=== PATIENT | male | born 1960 | race Caucasian/White ===

== ENCOUNTER 2016-04-27 15:25 | Inpatient (IN) | payer MEDICARE, MEDICAID ==
[~2016-04-27] VITALS: Ht 172.7 cm; Wt 85.4 kg
--- NOTE | ~2016-04-27 | CON ---
PATIENT'S NAME: CONCEPCION BARRETT [facility] AGE: 56 Y [address] ROOM: [place] [address] LOCATION: GPCU ADMIT DATE: 04/27/2016 Consultation DISCHARGE DATE: FAMILY PHYSICIAN: PHYSICIAN, UNKNOWN ATTENDING PHYSICIAN: PEÑA RATLIFF DATE OF CONSULTATION: 04/28/2016 REFERRING PHYSICIAN: Peña Ratliff MD REASON FOR VISIT/CONSULTATION: Wound Care visit to evaluate and assess a groin rash. HISTORY OF PRESENT ILLNESS: This is a 56-year-old male patient who was admitted to [facility] with an acute kidney injury and a GI bleed. The patient has a history of essential hypertension, back pain, and alcohol abuse. Per previous records, patient drinks an average of 8 cans of beer with 4 to 5 shots of whiskey daily and has done so for numerous years. His significant other noticed coffee-grounds emesis on the morning of admission to the hospital. EMS was called and the patient was brought to [facility] for evaluation. Family reports the patient has been falling frequently. His last fall was about a week or so ago. Family is unsure how long he laid down or the events that transpired prior to the fall. Nursing staff reports that the patient's significant other was leaving him in incontinence briefs for several hours at a time. The patient noted to have significant skin denudement and erosion to the bilateral groin folds on admit. The patient is denying pain. He is drowsy, disoriented, and a poor historian. His right elbow is swollen. He is unsure for how long. Family reports it has been that way for months. PAST MEDICAL HISTORY: 1. Essential hypertension. 2. Left lower leg DVT. 3. Alcohol abuse. 4. Chronic lower back pain. PAST SURGICAL HISTORY: Per previous records, a steel plate in back. FAMILY HISTORY: Per previous records, his father had colon cancer. SOCIAL HISTORY: PATIENT'S NAME: CONCEPCION BARRETT [facility] AGE: 56 Y [address] ROOM: [place] [address] LOCATION: GPCU ADMIT DATE: 04/27/2016 Consultation DISCHARGE DATE: FAMILY PHYSICIAN: PHYSICIAN, UNKNOWN ATTENDING PHYSICIAN: PEÑA RATLIFF The patient lives with his significant other in [place], [place]. Family reports no tobacco use. He is an alcoholic, please see HPI above for further details. ALLERGIES: NO KNOWN MEDICATION ALLERGIES. CURRENT MEDICATIONS: Pertinent to this dictation: 1. Nystatin powder t.i.d. 2. Fluconazole IV. REVIEW OF SYSTEMS: Unable to complete due to the patient's disorientation. PHYSICAL EXAMINATION: VITAL SIGNS: Temperature 97.6, pulse 87, respirations 12, blood pressure 115/62, and pulse oximetry 97%. Height 5 feet 8 inches, and weight 75.0 kg. GENERAL: The patient is drowsy, appears disoriented, and disheveled. HEENT: Anicteric sclerae. Dry oral mucosa. Cracked lips. NG intact to left nare. NECK: Supple. CARDIOVASCULAR: Regular rate and rhythm. ABDOMEN: Soft and nontender. EXTREMITIES. +1 pedal pulses. Scant edema noted to the lower legs. Capillary refill intact. Extremities are warm to touch. Heels intact. SKIN: Significant skin denudement with erosion to bilateral groin folds and upper thighs. Area is bright red in color. Scrotum is red with no open areas. Groin folds draining a moderate amount of serous exudate. Scaling of skin to bilateral groins. No odor noted. Buttocks intact. Linear dermal ulcer to gluteal crease. Area is moist pink in color. Scant serous exudate noted. Right elbow appears to have bursitis. Area is red and edematous. Proximal to his olecranon process, he has an open area that measures 4.0 cm width x 3.5 cm length x 0.1 cm depth. Wound bed is moist pink. Small amount of serosanguineous exudate noted. Distal to his olecranon process he also has a small moist pink ulcer. Area is tender to touch. Active range of motion noted. No crepitus. Periwound intact. No odor. Ecchymosis to right knee. LABORATORY DATA AND IMAGING STUDIES: Laboratory and Diagnostics: White blood cell count 7.1, hemoglobin 10.3, hematocrit 27.7, and platelets 94,000. Sodium 129, potassium 3.6, chloride 91, bicarbonate 25, BUN 77, creatinine 1.8, glucose 97, and albumin 1.9. Lactate 2.7. Urine culture, no growth to date. Blood cultures, no growth to [facility] 56 Y [address] ROOM: [id number] [place], [place] [address] LOCATION: GPCU ADMIT DATE: 04/27/2016 Consultation DISCHARGE DATE: FAMILY PHYSICIAN: PHYSICIAN, UNKNOWN ATTENDING PHYSICIAN: PEÑA RATLIFF date. Right elbow x-ray shows mild DJD, no fracture or joint effusion. ASSESSMENT AND PLAN: Again, this is a 56-year-old male patient who was admitted to [facility] with acute kidney injury and gastrointestinal bleeding. Wound Care consult to evaluate and assess a groin rash. 1. Moisture-associated skin damage, incontinence associated dermatitis, with underlying Candidal intertrigo infection. Due to patient's history of incontinence and presentation, he appears to have incontinence associated dermatitis with an underlying fungal rash. It is helpful that he has a Lundberg catheter intact to help with moisture control. Nursing is not to apply a brief to the patient. He has nystatin powder, however, clumping is noted due to drainage. We will change nystatin to topical ointment. Nursing is to apply t.i.d. The patient is to continue on fluconazole IV. Nursing is to keep the area clean and dry. I will continue to monitor site during hospital stay. 2. Gluteal crease dermal ulcer due to moisture trapping. This area is not a pressure ulcer. Nursing will apply [place] q.i.d. to gluteal crease. It is helpful that the patient has a Lundberg catheter in place. Pressure redistribution measures such as turning patient in bed q.2 hours will be enforced. The patient is to keep heels offloaded on pillows at all times. 3. Right olecranon bursitis. X-ray is negative. Possibly related to pressure and/or trauma. Unable to get a reliable history from the patient. Nursing is to elevate the right arm at all times. The patient appears to have a superficial skin tear to the site. Nursing is to cover with Xeroform gauze, change daily and p.r.n. saturation. 4. Hypovolemic shock. The patient is on IV fluids. Hospitalist is managing. I would like to thank Dr. Ratliff for this consultation. FLAQUITA JACKSON APRN FOR MD ANNABELLE CABEZAS/moiz /[id number] d: 04/28/162016 t: 05/17/161811, CONSULTATION REPORT
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
--- NOTE | ~2016-04-27 | DS ---
PATIENT'S NAME: CONCEPCION BARRETT [facility] AGE: 56 Y [address] ROOM: [place] [address] [place] [facility] [place]: 04/27/2016 Discharge Summary DISCHARGE DATE: 05/14/2016 FAMILY PHYSICIAN: Physician, Unknown ATTENDING PHYSICIAN: Peña Goyal PRINCIPAL DIAGNOSES: 1. Shock secondary to hypovolemia. 2. Acute blood loss anemia. 3. Acute upper gastrointestinal bleed. 4. Severe deconditioning. 5. Moderate protein-calorie malnutrition. 6. Dieulafoy lesion. 7. Alcoholism. 8. Vitamin A deficiency. 9. Essential hypertension. 10. Tobacco abuse. HOSPITAL COURSE: Please reference any of the admitting data to the history and physical as dictated by Dr. Goyal. A 56-year-old male with a known history of alcohol abuse and projectile coffee- grounds emesis. He was taken to the local ER for evaluation and then further sent to [facility] for further evaluation and management. He did have a hypotension and was started on IV fluids. His blood count which was initially greater than 10 had dropped to 7.4 at admission. He was placed in the progressive care while under telemetry for close observation. He was given IV fluids for blood pressure support and given blood transfusion of 2 units of packed red blood cells. He was started on octreotide drip, placed in restraints because of encephalopathy, NG tube for suction, and kept nothing by mouth. Gastroenterology consultation was obtained. He was also placed on empiric antibiotic treatment in the setting of concern for aspiration pneumonia. He was encephalopathic and a CT scan of his head did not show any acute intracranial abnormalities. Of note, there was advanced cerebral atrophy. He was also placed on the CIWA protocol to minimize the risk of alcohol detoxification and withdrawal symptoms. The patient also had a rash in his groin, which was felt to be a fungal. Wound, Ostomy, and Continence Nursing was also consulted where the patient was given topical treatment as well as nonpharmacologic intervention. They followed him through the remainder of his stay. On 04/28, his NG tube was discontinued. He was placed on Protonix IV. He PATIENT'S NAME: CONCEPCION BARRETT [facility] AGE: 56 Y [address] ROOM: [place] [address] [place] [facility] [place]: 04/27/2016 Discharge Summary DISCHARGE DATE: 05/14/2016 FAMILY PHYSICIAN: Physician, Unknown ATTENDING PHYSICIAN: Peña Goyal then underwent an endoscopy on 04/29 that showed severe esophagitis and gastric vascular lesion, treated with epinephrine and clip. He was able to resume a liquid diet and advanced as tolerated over the next 24-hour period. Trend of his hemoglobin showed continued surprise from initial 7.4 to 10.3 after transfusion, did fall down to 8.0 before trending back upward for the remaining of his stay and was 10.0 on the day of discharge. He did not require electrolyte replacement. By May 01, the patient's antibiotics were stopped. He had no complication or concerns for infection since. The patient was initially very encephalopathic, this did improve with time. He was started on physical and occupational therapy due to his severe deconditioning. Nutrition consult was obtained. His pre-albumin was initially 9.0. He was started on a mood altering medication. He did require titration of his antihypertensive medications, but appeared to have well controlled on Norvasc and Lopressor by time of discharge. Although the patient made great improvements over the 2-week period he was here, it was felt he was still not safe enough to ambulate independently and given his poor nutritional status, it was elected that the patient be transitioned to a lower level of care. Care Management and Social Work worked with the patient and were able to obtain a TCU bed on the day of discharge, with plan to continue restorative plan and nutritional supplementation before returning to home. The patient does have a remote history of a DVT, and because in light of the acute blood loss anemia, no anticoagulation was utilized. Pneumatic compression devices and often ambulation were used to prevent DVTs. The patient does have a history of tobacco use, very significant, and in fact he was given smoking cessation education and started on nicotine patch with plans to taper accordingly. Given the patient's alcohol abuse disorder, he was given multiple options for treatment, both inpatient and outpatient as well as alcoholic anonymous and tips to stop drinking. Ultrasound of the abdomen consistent with fatty infiltration, probably from severe alcohol abuse. CONSULTING PROVIDERS: 1. Gastroenterology. 2. Wound, ostomy, and Incontinence. PROCEDURES: Endoscopy or EGD. RADIOLOGIC IMAGING: CT of the brain showed advanced cerebral atrophy greater than expected for the age, no acute intracranial abnormalities found. An abdominal ultrasound showed a sludge-filled gallbladder, without any obvious stones. There is no biliary ductal dilatation. Abnormal liver PATIENT'S NAME: CONCEPCION BARRETT [facility] AGE: 56 Y [address] ROOM: [id number] [place], [place] [address] [place]: [facility] [place]: 04/27/2016 Discharge Summary DISCHARGE DATE: 05/14/2016 FAMILY PHYSICIAN: Physician, Unknown ATTENDING PHYSICIAN: Peña Goyal texture consistent with fatty infiltration and/or fibrosis, no ascites. A right elbow, 3 view, showed mild DJD, no fracture or joint effusion. LABORATORY DATA: Initial lactate was 3.7, repeat was 2.7 24 hours later. Cardiac enzymes were negative. CBC initially showed a hemoglobin of 7.4, after transfusion was 10.3, then falling to 8.0 before trending upwards to 8.5, 8.8, 9.4, and 10.0 respectively, most recently showed a hemoglobin of 10.0 and a hematocrit of 29.7. Platelet count of 315. Chemistry panel initially showed an acute kidney injury with creatinine 2.7, this did resolve over the next 3 days. Most recent chemistry panel on 05/13 showed glucose of 189, BUN of 13, creatinine 0.7, sodium 139, potassium 3.7, chloride of 107, CO2 of 24, and calcium 8.1. Liver functions initially had a total bilirubin of 2.1 and 3.4 respectively, falling to normal at 0.6 on the day of discharge. GFR was greater than 60 on the day of discharge. INR was 1.1. Initial urinalysis showed brenda-colored urine with a turbidity of 1+, specific gravity of 1.01, pH of 5.0, leukocytes 25, nitrites negative, protein negative, glucose negative, ketones negative, urobilinogen 4, bilirubin positive. Microanalysis showed white blood cells 0-2, red blood cells 0-2, epithelial 2- 5, renal epithelial 0-2, bacteria few, mucus 2+, many amorphous materials, and 2+ hyaline and granular casts are present. A urine creatinine was 153.0, urine osmolality was 366, urine sodium was less than 5. Urinalysis drug screen was negative. Presenting alcohol level was less than 0.010. Acetaminophen and salicylate level were low. Initial procalcitonin was 5.76 and then 3.96 respectively. Vitamin A was 0.11, vitamin D 25; D2 was 17.5, D3 was 7.3, and a total was 24.8. DISCHARGE MEDICATIONS: 1. Amlodipine 10 mg p.o. every day. 2. Os-Petar plus D 500 mg p.o. twice daily with meals. 3. Celexa 20 mg p.o. every morning. 4. Folic acid 1 mg p.o. every day. 5. Lidoderm 5% patch 1 patch transdermal every morning for 12 hours and to remove for 12 hours, to be applied every day. 6. Magnesium oxide 400 mg p.o. every day. 7. Metoprolol tartrate 50 mg p.o. twice daily. 8. Multivitamin 1 tablet p.o. every day. 9. NicoDerm 21 mg transdermal every day. 10. Protonix 40 mg p.o. twice daily. 11. Florastor 250 mg p.o. twice daily. 12. Thiamine 100 mg p.o. every day. 13. Vitamin A 74455 units p.o. every day. DISCHARGE INSTRUCTIONS: The patient will be discharged and transitioned to PATIENT'S NAME: CONCEPCION BARRETT [facility] AGE: 56 Y [address] ROOM: [place] [address] [place]: [facility] [place]: 04/27/2016 Discharge Summary DISCHARGE DATE: 05/14/2016 FAMILY PHYSICIAN: , Unknown ATTENDING PHYSICIAN: Peña Goyal Transitional Care Unit here at [facility]. The hospitalist will continue to follow along during his stay. It is recommended that the patient at some point in time has an manager production's followup as an outpatient regarding his vitamin A deficiency and decreased vision in the setting of alcoholism. Code status is full code. Diet should be regular. Observation of his nutrition status and supplement accordingly is recommended. His weightbearing status is as tolerated. Fall precautions. To ambulate 3 times daily. Occupational and Physical Therapy to evaluate and treat the patient as indicated. We will continue to observe his labs. Vitamin A level is recommended within the next 30 days, prealbumin level and CBC in 1 week. His rehab potential is good. His discharge potential is good. The patient and family are well aware of his condition and his prognosis. Continued smoking and alcohol education on cessation, and Social Work did see the patient while he was in TCU with an eventual plan of return to home. He should have a repeat EGD performed in the acute setting. A Gastroenterology followup to be determined. Discharge information for TCU: On the day of discharge, the patient was seen in the acute setting. He had not eaten much during the day. He was doing exercise with physical therapy. He had complained of a headache, but no visual changes. He denied any chest pain or palpitations. He denied any shortness of breath or cough. He denied any nausea or vomiting. PHYSICAL EXAMINATION: VITAL SIGNS: He was afebrile with heart rate of 87, respiratory rate of 14, blood pressure 131/83, and oxygen saturation 98% on room air. GENERAL: Greater than his stated age, but appeared comfortable sitting in bed. He is cooperative with examination, alert and oriented. LUNGS: Clear throughout all ferrer. There was no wheeze. HEART: Regular rate and rhythm without any gallop or murmur. S1, S2 present. He did not reveal any pedal edema. ABDOMEN: Soft, nontender, and nondistended. EXTREMITIES: No clubbing or cyanosis. NEURO: He was alert and oriented x3. There were no withdrawal seizures or any symptoms associated with that. Speech was clear, and he moved all 4 extremities. His hemoglobin today was 10.00. plan will be as above, which was discussed with Dr. Duke as well as the patient and his significant other. PATIENT'S NAME: CONCEPCION BARRETT [facility] AGE: 56 Y [address] ROOM: [place] [address] [place] [facility] [place]: 04/27/2016 Discharge Summary DISCHARGE DATE: 05/14/2016 FAMILY PHYSICIAN: Physician, Unknown ATTENDING PHYSICIAN: Peña Goyal CONDITION UPON DISCHARGE: Good. Total time arranging discharge greater than 30 minutes. Thank you for allowing us to participate in the care of this patient while at [facility]. RBIE LIMA APRN, APRN FOR MD LAURA CLEMENS/moiz /[id number] d: t: 05/15/16 0251, DISCHARGE SUMMARY
[~2016-04-27 15:25] MED LIST: ALEVE PM CAPLE1 EACH PO; DRISDOL 5050000 UNIT PO; FOLIC ACID1 MG PO; MYCOSTATIN(NYST15 GM TOP; NORVASC10 MG PO; OMEGA XL PO; PRINIVIL (ZESTR20 MG PO; PROTONIX40 MG PO; THIAMINE HCL100 MG PO; TYLENOL325 MG PO; VITAMIN D1000 UNIT PO
[2016-04-27] MEDS ORDERED: ADVIL PM CAPLE1 EACH PO (16:37)
[2016-04-27 16:48] LABS: HEMATOCRIT 20.8 % (37.0-53.0); HEMOGLOBIN 7.4 g/dL (12.0-17.0); MCHC 35.6 gm/dL (32.0-36.5); MCV 92.9 fl (83.0-98.0); MPV 10.9 fl (9.4-12.4); PLATELET COUNT 128 K/uL (150-450); RBC 2.24 M/uL (4.00-6.00); RDW-CV 12.5 % (11.9-14.6); WBC 8.3 K/uL (4.0-11.0)
[2016-04-27 16:58] LABS: INR - (THERAPEUTIC) 1.1 (0.9-1.1); PROTIME 11.8 SECONDS (9.6-11.1); PTT 29 SECONDS (25-32)
[2016-04-27 17:07] LABS: ALK PHOS 81 IU/L (33-138); ALT 71 IU/L (12-78); AST 147 IU/L (10-40); CO2 27 mMol/L (22-32); CPK 152 IU/L (35-332); CREATININE 2.7 mg/dL (0.6-1.3); ESTIMATED GFR (MDRD EQUATION) 24; MAGNESIUM 1.7 mg/dL (1.3-2.6); PHOSPHORUS 2.5 mg/dL (2.5-4.9); TOTAL BILIRUBIN 2.1 mg/dL (0.0-1.5); TOTAL PROTEIN 5.6 g/dL (6.0-8.4)
[2016-04-27 17:09] LABS: BLOOD UREA NITROGEN 95 mg/dL (6-24); CALCIUM 7.2 mg/dL (8.5-10.5); CHLORIDE 77 mMol/L (96-110); SODIUM 121 mMol/L (135-145)
[2016-04-27 17:27] LABS: ABSOLUTE NEUTROPHIL CT (ANC) 6.2 K/uL (1.4-9.0); BANDED NEUTROPHIL # 1.1 K/uL (0.0-0.1); BANDED NEUTROPHILS % 13 %; LYMPHOCYTE # 1.2 K/uL (0.8-4.0); LYMPHOCYTE % 14 %; MONOCYTE # 0.8 K/uL (0.0-1.0); SEGMENTED NEUTROPHIL # 5.2 K/uL (1.4-9.0); SEGMENTED NEUTROPHIL % 62 %
[2016-04-27 18:25] LABS: BLOOD URINE 50 /UL (NEGATIVE); COLOR URINE AMBER (YELLOW); GLUCOSE URINE NEGATIVE (NEGATIVE); KETONE URINE NEGATIVE (NEGATIVE); LEUKOCYTES URINE 25 /UL (NEGATIVE); NITRITE URINE NEGATIVE (NEGATIVE); PROTEIN URINE NEGATIVE (NEGATIVE); SPEC GRAVITY URINE 1.015 (1.003-1.035); TURBIDITY URINE 1+ (CLEAR); UROBILINOGEN URINE 4 mg/dL (NORMAL)
[2016-04-27 18:43] LABS: AMORPHOUS URINE 2+ (NEGATIVE)
[2016-04-27 18:45] LABS: WBC URINE 0-2 #/HPF (NEGATIVE)
[2016-04-27 18:46] LABS: BACTERIA URINE FEW (NEGATIVE); MUCUS URINE 2+ (NEGATIVE); RBC URINE 0-2 #/HPF (NEGATIVE); RENAL EPITH URINE 0-2 #/HPF (NEGATIVE)
[2016-04-27 19:01] LABS: AMPHETAMINE NEGATIVE (NEGATIVE); BARBITURATE NEGATIVE (NEGATIVE); COCAINE NEGATIVE (NEGATIVE); OPIATES NEGATIVE (NEGATIVE)
--- NOTE | 2016-04-27 19:15 | NUR ---
1545 PT IS AADITTED TO PCU PER EMS. AT TIME OF ADMIT PT IS ALMOST UNRESPONSIVE. DOES MOAN TO STERNAL RUB, NO VERBAL. TO BED BY LIFT SHEET. PT IS VERY DIRTY AND UNKEPT.DIRED VOMIT IN ABARCA, AND EARS. EYES ARE CRUSTED SHUT. PT IS JUST VERY GRIMMY AND WHEN WASHED WITH WET RAGS, THEY COME OFF OF HIM BROWN. RT ELBOW SWOLLEN RED, LARGE OPEN SHERRING AREA THAT IS WEEPING ABOUT THE SIZE OF A SILVER DOLLAR ON RT ELBOW, LT ELBOW IS VERY SORE TO THE TOUCH. BILATERAL GROINS EXTREMILY RED, RAW AND ESCORIATED. WHEN THIS AREA WAS WASHED, HE STARTED TO BLEED FROM THE NUMEROUS SCABS AROUND THE EDGES. PENIS IS ALSO RED RAW AND HAS OPEN AREAS, SCROTOM HAS RED AREAS NOT RAW AND OPEN. PT'S GIRLFRIEND SAYS HE WOULDNY GET UP TO THE BR SO SHE PUT DIAPERS ON HIM. BACK AND BOTTOM DON'T LOOK TOO BAD, NO OPEN AREAS. LOWER LEGS VERY DRY AND DIRTY, MOTTLED WHEN HE CAME TO THE FLOOR. DAUGHTERS HERE WHEN ADMITTED BUT THEY DO NOT HAVE A RELATIONSHIP WITH HIM, SO DIDN'T STAY. GIRLFRIEND HERE, BUT DOESN'T REALLY KNOW THAT MUCH ABOUT HIM. DR RATLIFF HERE AND NUMEROUIS ORDERS RECIEVED. RIZZO PLACED CLEAR ORANGE URINE.
[2016-04-27 19:34] LABS: HEMOGLOBIN 7.5 g/dL (12.0-17.0)
--- NOTE | 2016-04-28 04:54 | NUR ---
Significant Event: Oriented to self only at beginning of night, now is only d/o to date/time, patient mumbles but much more communicative now, makes confused statements at times, SBP 100-110s, HR 80-110s, on RA, lungs clear with some crackles to bases, afebrile, denies pain or discomfort, NG to intermittent suction has had total of 140ml out since admission, black coffee ground in color, denies nausea, nystatin to groin/periarea, james had 560 output and orange in color, nicotine patch to L)shoulder, currently infusing 2nd unit of blood, Protonix & Octreotide gtts continue, fluids at 75ml/hr, IV abt continue, chest xray and R)elbow xray results pending, CT of head complete and MD called with results, wrist restraints to keep patient from pulling out NG tube, family at bedside, GI saw, abd u/s this am Follow up: continue plan of care, family wishing to discuss code status
[2016-04-28 07:57] LABS: CREATININE 1.8 mg/dL (0.6-1.3); TOTAL PROTEIN 5.4 g/dL (6.0-8.4)
[2016-04-28 08:00] LABS: ANION GAP 16.6 (10.0-19.0)
[2016-04-28 08:01] LABS: ALBUMIN 1.9 gm/dL (3.5-5.0); CALCIUM 7.1 mg/dL (8.5-10.5); MAGNESIUM 1.6 mg/dL (1.3-2.6); POTASSIUM 3.6 mMol/L (3.7-5.1); TOTAL BILIRUBIN 3.4 mg/dL (0.0-1.5)
[2016-04-28 08:18] LABS: BASOPHIL % 0.3 %; EOSINOPHIL % 0.1 %; HEMOGLOBIN 10.3 g/dL (12.0-17.0); IMMATURE GRANULOCYTE # 0.1 K/uL (0.0-0.3); IMMATURE GRANULOCYTE % 1.3 %; LYMPHOCYTE # 1.2 K/uL (0.8-4.0); LYMPHOCYTE % 16.9 %; MONOCYTE % 14.3 %; MPV 10.2 fl (9.4-12.4); NEUTROPHIL # (ANC) 4.8 K/uL (1.4-9.0); NEUTROPHIL % 67.1 %; NRBC % 1.4 /100WBC (0-0.00); WBC 7.1 K/uL (4.0-11.0)
[2016-04-28 08:39] LABS: HEMATOCRIT 27.7 % (37.0-53.0); MCH 31.6 pg (27.0-34.0); MCHC 37.2 gm/dL (32.0-36.5); RBC 3.26 M/uL (4.00-6.00)
[2016-04-28 08:40] LABS: PLATELET COUNT 94 K/uL (150-450)
--- NOTE | 2016-04-28 17:35 | NUR ---
Significant Event: WOC INTO SEE PT TODAY, ORDERS RECIEVED. GI IN TO SEE PT LATE THIS PM, EGD IN AM, NPO AFTER 4 AM FOR EGD AROUND 1100. NG OUT THIS AFTERNOON, ONLY 140 OUT SINCE ADMIT YESTERDAY. DRESSING TO RT ELBOW. OINTMENT TO GROIN, ALOE TO BOTTOM. PT MORE AWAKE LATE THIS PM, TALKING TO FAMILY AND FRIENDS. TURNING Q2. SHAVED. TRIED TO BRUSH TEETH AND PT SAYS HE HAS A BROKEN TOOTH ON THE LT CLEAR IN THE BACK. MG 2 GMS THIS AM FOR 1.6. NEW DRESSING ORDERED FOR RT ELBOW, UNABLE TO GET UNTIL FRIDAY MORNING.VSS. HGB 10.3 Follow up: ABOVE,MONITOR
--- NOTE | 2016-04-29 01:47 | NUR ---
Per shift change report, restraints have been off patient since around 1530 on 04/28/16. RN reported removing bilateral wrist restraints after NG tube was d/c'd.
[2016-04-29 04:43] LABS: BASOPHIL % 0.2 %; EOSINOPHIL % 0.9 %; HEMATOCRIT 25.6 % (37.0-53.0); IMMATURE GRANULOCYTE # 0.2 K/uL (0.0-0.3); IMMATURE GRANULOCYTE % 4.2 %; LYMPHOCYTE # 0.8 K/uL (0.8-4.0); LYMPHOCYTE % 18.1 %; MCH 31.4 pg (27.0-34.0); MCHC 35.2 gm/dL (32.0-36.5); MCV 89.2 fl (83.0-98.0); MONOCYTE # 0.6 K/uL (0.0-1.0); MONOCYTE % 13.7 %; MPV 9.6 fl (9.4-12.4); NEUTROPHIL # (ANC) 2.7 K/uL (1.4-9.0); NEUTROPHIL % 62.9 %; NRBC % 1.6 /100WBC (0-0.00); PLATELET COUNT 110 K/uL (150-450); RBC 2.87 M/uL (4.00-6.00); RDW-CV 16.1 % (11.9-14.6); WBC 4.3 K/uL (4.0-11.0)
[2016-04-29 04:55] LABS: BLOOD UREA NITROGEN 45 mg/dL (6-24); CHLORIDE 101 mMol/L (96-110); CO2 24 mMol/L (22-32); CREATININE 1.1 mg/dL (0.6-1.3); MAGNESIUM 2.2 mg/dL (1.3-2.6); POTASSIUM 3.7 mMol/L (3.7-5.1)
[2016-04-29 04:56] LABS: ALBUMIN 1.9 gm/dL (3.5-5.0); ANION GAP 14.7 (10.0-19.0); CALCIUM 7.4 mg/dL (8.5-10.5); ESTIMATED GFR (MDRD EQUATION) > 60; PHOSPHORUS 1.6 mg/dL (2.5-4.9); SODIUM 136 mMol/L (135-145)
--- NOTE | 2016-04-29 06:49 | NUR ---
Significant Event: A/O, makes confused statements at times, VSS, SBP 120-140s, RA, lungs slightly coarse throughout, james had 800 orange urine out, nystatin ointment to groin and periarea, IV fluids continue along with Octreotide gtt, NPO for EGD at 1100, repostioned Q2hr, no c/o pain, patient states he's "feeling much better this am" Follow up: continue plan of care
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
--- NOTE | 2016-04-29 20:18 | NUR ---
Significant Event: Alert and oriented. Becomes confused and says things that does not make sense. SBP 140's, 150's. HR 70's & 80's. Peripheral IV right antebubital, saline locked. Peripheral IV left antecubital. Octreotide infusing at 25 ml/hr. Antibiotics also infusing intermittent. EGD done today. Esophagitis, Esophageal fungus, and stomach ulcers. Clear liquid diet and can advance as tolerated. Pericares done to groin X 2 with nystatin applied. Groin excoriated, red and bleeding. Bedrest. Pleasant and cooperative with cares. Follow up:
--- NOTE | 2016-04-30 04:38 | NUR ---
Significant Event: A/O x3 but patient is forgetful, SBP 160s, HR 80s, RA, afebrile, active bowel tones, sips of clear liquids and tolerating well, new IV to L)post fa, Octreotide and abts, banana bag infusing to R) arm, received IV potassium phosphate, nystatin to groin/richard area, repositioned Q2hr, much more talkative throughout night, [id number] out Follow up: continue plan of care, placement needs
[2016-04-30 04:43] LABS: BASOPHIL % 0.3 %; EOSINOPHIL # 0.1 K/uL (0.0-0.5); HEMOGLOBIN 8.1 g/dL (12.0-17.0); IMMATURE GRANULOCYTE # 0.1 K/uL (0.0-0.3); IMMATURE GRANULOCYTE % 3.3 %; LYMPHOCYTE # 0.9 K/uL (0.8-4.0); LYMPHOCYTE % 23.3 %; MCH 31.8 pg (27.0-34.0); MCHC 33.8 gm/dL (32.0-36.5); MONOCYTE # 0.6 K/uL (0.0-1.0); MONOCYTE % 15.9 %; MPV 9.2 fl (9.4-12.4); NEUTROPHIL # (ANC) 2.2 K/uL (1.4-9.0); NEUTROPHIL % 55.2 %; NRBC % 2.3 /100WBC (0-0.00); PLATELET COUNT 130 K/uL (150-450); RBC 2.55 M/uL (4.00-6.00); RDW-CV 16.2 % (11.9-14.6)
[2016-04-30 04:44] LABS: MCV 94.1 fl (83.0-98.0)
[2016-04-30 04:54] LABS: ANION GAP 14.6 (10.0-19.0); CHLORIDE 104 mMol/L (96-110); CO2 24 mMol/L (22-32); CREATININE 0.8 mg/dL (0.6-1.3); ESTIMATED GFR (MDRD EQUATION) > 60; PHOSPHORUS 2.7 mg/dL (2.5-4.9); POTASSIUM 3.6 mMol/L (3.7-5.1); SODIUM 139 mMol/L (135-145)
[2016-04-30 04:56] LABS: ALBUMIN 1.8 gm/dL (3.5-5.0); BLOOD UREA NITROGEN 20 mg/dL (6-24); CALCIUM 7.4 mg/dL (8.5-10.5)
--- NOTE | 2016-04-30 14:00 | NUR ---
Left [facility] for Thelma at [facility] in [place] in the a.m. Referral to Sarina with [facility] to meet with patient and his girlfriend today regarding medicaid application. Received call back early p.m. from Thelma at [facility] and she says will have male bed later this week and to fax information. Information faxed to [facility]. Spoke with patient, patient's girlfriend and her daughter this afternoon. They say Sarina has not been to see them yet. Updated them on referral to [facility]. Gave girlfriend financial assistance form for [facility]. Called Sarina again and asked her to please try to see patient and girlfriend today as she is here and off work today. She will try. Updated girlfriend. Will follow.
--- NOTE | 2016-04-30 18:56 | NUR ---
Significant Event: Alert and oriented. Can become confused at times. Room air. IV to right antecubital infusing antibiotics. IV to left posterior upper arm with bannana bag infusing. Nystatin applied to excoriated groin, area is improving. Open area in crack coccyx, aloe vera cream applied. Up to chair with full lift and 2 assist. Soft foods and thin liquids can advance as tolerated. Dressing to left elbow changed with xeroform, gauze and gauze wrap. No drainage noted. Pleasant and cooperative with cares. Follow up:
--- NOTE | 2016-05-01 04:31 | NUR ---
Pt a/o x2-3. confused statements at times. was attempting to eat his tele wires- "thought they were sausages" VSS on RA, afebrile. q2 turn. groin sites excoriated -nystatin cream to them. C/o back pain that is chronic but no meds available- pt fell asleep with repo. Day shift yest had him up in the chair-please rezero bed if pt to get up to chair today. Con't on banana bag for 1 more day. Started on some oral meds. Con't on IV abx as wel. Plan: con't current plan of care
[2016-05-01 05:55] LABS: BASOPHIL % 0.5 %; EOSINOPHIL # 0.1 K/uL (0.0-0.5); EOSINOPHIL % 1.9 %; HEMATOCRIT 23.8 % (37.0-53.0); IMMATURE GRANULOCYTE # 0.1 K/uL (0.0-0.3); IMMATURE GRANULOCYTE % 3.8 %; LYMPHOCYTE % 27.6 %; MCH 31.7 pg (27.0-34.0); MCHC 33.6 gm/dL (32.0-36.5); MCV 94.4 fl (83.0-98.0); MONOCYTE # 0.4 K/uL (0.0-1.0); MONOCYTE % 11.2 %; MPV 9.3 fl (9.4-12.4); NRBC % 2.2 /100WBC (0-0.00); PLATELET COUNT 132 K/uL (150-450); RBC 2.52 M/uL (4.00-6.00); RDW-CV 15.7 % (11.9-14.6); WBC 3.7 K/uL (4.0-11.0)
[2016-05-01 06:11] LABS: ALK PHOS 101 IU/L (33-138); ALT 60 IU/L (12-78); ANION GAP 14.5 (10.0-19.0); AST 102 IU/L (10-40); BLOOD UREA NITROGEN 10 mg/dL (6-24); CALCIUM 7.5 mg/dL (8.5-10.5); CHLORIDE 102 mMol/L (96-110); CO2 23 mMol/L (22-32); CREATININE 0.7 mg/dL (0.6-1.3); ESTIMATED GFR (MDRD EQUATION) > 60; POTASSIUM 3.5 mMol/L (3.7-5.1); SODIUM 136 mMol/L (135-145); TOTAL PROTEIN 5.3 g/dL (6.0-8.4)
[2016-05-01 06:17] LABS: ALBUMIN 1.7 gm/dL (3.5-5.0); TOTAL BILIRUBIN 1.6 mg/dL (0.0-1.5)
--- NOTE | 2016-05-01 12:57 | NUR ---
Rounded and nursing working with patient and sister was here. Sister came into the hallway to talk with me. Reviewed with her discharge plan for skilled care and that referral made to [facility] and awaiting their decision. Talked with her about medicaid application process. She feels Prerna she be limited in the decisions due to the condition he was in at home. Told her Prerna has voiced to me she wants to help the girls but does not feel comfortable making the decisions for him. Told her we do need Prerna's assistance with gathering the documentation for the medicaid application. Leann indicated to me they would file the medicaid paperwork but with Prerna's assistance. She says that is OK. She hopes [facility] will accept him as that will be close for the girls and Prerna to visit him. Will follow.
--- NOTE | 2016-05-01 16:23 | NUR ---
Significant Event: Patient A/O x3. Confused at times, but reorients easily. VS stable on RA. Full lift transfer. Patient up to chair this shift. Q2H castro. IV to R) upper forearm with banana bag infusing. IV to L) posteior FA SL. Nystatin to bilateral groin area. Aloe to coccyx area. Dressing to the R) elbow changed this shift. Patient receiving intermittent antibiotics. BM this shift. Lundberg patent and draining yellow urine. Patient pleasant and cooperative with cares. Family supportive at bedside. Follow up: Continue to monitor per plan of care.
--- NOTE | 2016-05-02 04:39 | NUR ---
Pt a/o with intermittent confused statements but reorients quickly. vss on ra, afebrile. turn-pt wiggles self off of pillows/sort of repositions self. james with 1450 out. banana bag at 42ml/hr in donald, lfa sl. oral abx. poor appetite. norco x1 and remeron at hs given. slept a good portion of the noc. plan: con't current plan of care- will need snf/tcu consult per family/ s/o request
[2016-05-02 06:11] LABS: BASOPHIL % 0.5 %; EOSINOPHIL # 0.1 K/uL (0.0-0.5); EOSINOPHIL % 2.3 %; HEMATOCRIT 26.4 % (37.0-53.0); HEMOGLOBIN 8.5 g/dL (12.0-17.0); IMMATURE GRANULOCYTE # 0.2 K/uL (0.0-0.3); IMMATURE GRANULOCYTE % 3.8 %; LYMPHOCYTE # 1.2 K/uL (0.8-4.0); LYMPHOCYTE % 29.9 %; MCH 31.1 pg (27.0-34.0); MCHC 32.2 gm/dL (32.0-36.5); MCV 96.7 fl (83.0-98.0); MONOCYTE # 0.3 K/uL (0.0-1.0); MONOCYTE % 7.8 %; MPV 9.2 fl (9.4-12.4); NEUTROPHIL # (ANC) 2.2 K/uL (1.4-9.0); NEUTROPHIL % 55.7 %; NRBC % 0.8 /100WBC (0-0.00); PLATELET COUNT 133 K/uL (150-450); RBC 2.73 M/uL (4.00-6.00); RDW-CV 15.3 % (11.9-14.6)
--- NOTE | 2016-05-02 08:40 | NUR ---
A - NUTRITION F/U. 05/01 LABS: K+ 3.5, GLU 94, BUN/AGRONOMY INTERNSHIP 10/0.7, ALB 1.7. PT CONFUSED AT TIMES. DIET: SOFT W/ ENSURE CLEAR TID. INTAKE 0-50%. EST NEEDS: [id number] KCALS, 76-92 GM PROTEIN, 1 ML/KCAL FLUIDS. D - AT RISK W/ INADEQUATE ORAL INTAKE R/T DECREASED APPETITE AEB INTAKE RECORD. I - GOAL: 50% OR BETTER INTAKE. M/E - WILL CHANGE ENSURE CLEAR TO ENSURE TO INCREASE NUTRIENT ALLOWANCE AND MONITOR ORAL INTAKE.
--- NOTE | 2016-05-02 14:00 | NUR ---
Message this a.m. from Thelma at [facility] and they can not accept patient since he does not have a supplemental insurance and they are concerned about his ability to pay the 20% after the 20 medicare days. Talked to Sarina with [facility] regarding medicaid application. She says they filed the application yesterday and she is waiting for some documentation that needs submitted. Sarina says once she has the required documentation she will contact [facility] and see if can push the case through faster. She says he may have a share of cost. Called and talked to Thelma at [facility] and asked if would accept if medicaid pending. She says he will have to have medicaid in place before they will consider him. She says if he getts approved for medicaid as secondary coverage they would be willing to reevaulate again. No family present in room at this time so need to update them regarding [facility] decision. Will follow.
--- NOTE | 2016-05-02 17:17 | NUR ---
Significant Event: NO CHANGES TODAY. UP IN RECLINER FOR ABOUT 4-5 HOURS MID DAY, FOR LUNCH. FAMILY HERE LATE THIS SHIFT. WAITING TO TALK TO DR. BLANCO LOOKING MUCH BETTER THAN ADMIT. PLEASENT AND COOPERATIVE WITH CARES. Follow up: MONITOR
--- NOTE | 2016-05-03 04:32 | NUR ---
NEURO: CARDIO: Tele. 2+ pedal edema. RESP: Upper 90's on RA. GI/: Lundberg removed. Patient has voided x 2 since. Incontinent of stool last night. SKIN: Groin very excoriated. Red spots on face (baseline). Reddened coccyx. Left elbow dressing. IV: SL. ACTIVITY: 1 assist with gait belt and walker. PAIN: Lidocaine patch to lower back. PLAN: Discharge when appropriate. Will probably need placement, possibly assisted living?
[2016-05-03 04:38] LABS: HEMATOCRIT 26.5 % (37.0-53.0); HEMOGLOBIN 8.8 g/dL (12.0-17.0)
[2016-05-03 04:58] LABS: ALBUMIN 1.8 gm/dL (3.5-5.0); ALK PHOS 153 IU/L (33-138); ALT 54 IU/L (12-78); ANION GAP 13.3 (10.0-19.0); AST 75 IU/L (10-40); BLOOD UREA NITROGEN 7 mg/dL (6-24); CALCIUM 7.8 mg/dL (8.5-10.5); CHLORIDE 100 mMol/L (96-110); CO2 25 mMol/L (22-32); CREATININE 0.7 mg/dL (0.6-1.3); ESTIMATED GFR (MDRD EQUATION) > 60; POTASSIUM 3.3 mMol/L (3.7-5.1); SODIUM 135 mMol/L (135-145); TOTAL BILIRUBIN 1.2 mg/dL (0.0-1.5); TOTAL PROTEIN 5.7 g/dL (6.0-8.4)
--- NOTE | 2016-05-03 16:15 | NUR ---
No family present when checked on patient. Spoke with him about discharge plans and need for skilled care before he can return home. He says he can't afford it. Talked to him about medicare coverage and that daughters and Prerna have filed for medicaid. He says if it is paid for he agrees he needs therapy and to get stronger before going home. Referral made to [facility]. Will follow.
--- NOTE | 2016-05-03 17:12 | NUR ---
Significant Event: Patient A/O x3. Hypertensive this shift. 1 time dose of nitro given this shift. Patient up to chair. Was transferring patient back to bed with 1 assist and patient's legs gave out, was able to get assistance to lay patient in bed. Full lift for nursing. Patient incontinent of BM and urine this shift. Patient reminded to keep dry to help groins heal. Dressing to elbow changed this shift. Lidocaine patch to lower back applied. Nystatin cream applied to groins. Aloe applied to coccyx are. Follow up: Awaiting placement.
--- NOTE | 2016-05-04 04:57 | NUR ---
NEURO: A&O. CARDIO: Tele. Hypertensive. Started on Metoprolol. RESP: Upper 90's on RA. GI/: Doing better using the urinal - incontinent of urine x 1 this shift. Incontinent of stool x 1 this shift. SKIN: Dressing to right elbow. Excoriated groin (nystatin cream). Buttocks reddened, one open area. Red spots on face. IV: Right upper arm, left wrist- both SL. ACTIVITY: Full lift. Patients legs gave out x 2 yesterday during the day. 1 assist to turn. PAIN: No c/o pain this shift. Patient does have a lidocaine patch to lower back. PLAN: Needs placement.
--- NOTE | 2016-05-04 14:53 | NUR ---
Significant Event: A/O X 3. ANSWERS QUESTIONS APPROPRIATELY. NEEDS ENCOURAGMENT WITH MOBILITY WITH PT/OT. DID AMBULATE IN ROOM AND UP TO BATHROOM TODAY. PATIENT'S FAMILY, SISTER, HAD HIM UP TO BATHROOM WITH GAIT BELT ON AND WALKER, SET OFF BED ALARM. INSTRUCTED FAMILY TO PLEASE ASK FOR HELP, SINCE HE DOES HAVE A ISSUE WITH "BUCKLING" AT THE KNEES. ROOM AIR, SATS 96%. NO RESP. DISTRESS. HR SR IN 70-90'S. AFEBRILE. SBP 160-170'S. CONT. WITH REDNESS OF MOIRA. GROINS, LOOKING SO MUCH BETTER, CONT. NYSTATIN ORDERED. LT. ELBOW SWOLLOW WITH SCAB LIKE NOTED. CUSHIONED WITH PRIYANKA WRAP. HAS LIDOCAINE PATCH TO LOWER BACK ORDERED. NO C/O PAIN. LARGE SOFT BLACK BM TODAY. USING URINAL APPROPRIATELY. Follow up: CONT. TO MONITER PT. STATUS.
[2016-05-05 03:42] LABS: HEMATOCRIT 25.3 % (37.0-53.0); HEMOGLOBIN 8.5 g/dL (12.0-17.0)
--- NOTE | 2016-05-05 05:13 | NUR ---
A/O. FORGETFUL AT TIMES. HR 90s. SBP 140-160s. AFEBRILE. ROOM AIR. 1 SOFT BM. VOIDS PER URINAL. DENIES PAIN. FULL LIFT/ 2ASSIST. DENIES PAIN. PLAN FOR [facility] SWING BED OR SNF. SIGNIFICANT OTHER AT BEDSIDE.
--- NOTE | 2016-05-05 16:59 | NUR ---
Significant Event: A/O X 3. FORGETFUL AT TIMES. PATIENT VERY NON-MOTIVATED WITH PT/OT. ENCOURAGED BY NURSE. WILL ONLY TURN IN BED. AFEBRILE. HR SR 90-100'S. SBP 160-190'S. METOPROLOL INCREASED TO BID. SATS 95% ON ROOM AIR. SO AT BEDSIDE. NOT MUCH ENCOURAGEMENT FROM HER EITHER. NORCO FOR HEADACHE. Follow up: PLAN SHANE ALMARAZ.
--- NOTE | 2016-05-06 05:12 | NUR ---
A/O. HR 90-100s. SBP 140-170s. ROOM AIR. AFEBRILE. REPO 2QHR. DENIES PAIN. NO BM. VOIDS PER URINAL.
--- NOTE | 2016-05-06 13:06 | NUR ---
Left [facility] for Jessica at [facility] to see if they have made a decision regarding patient. Did talk to Nae on TCU and told her he is ready and to look at him. Will follow.
--- NOTE | 2016-05-06 13:43 | NUR ---
A-NUTRITION F/U WAITING FOR PLACEMENT. BUTTOCKS REDDENED W/ONE OPEN AREA, PER RN. FORGETFUL AT TIMES. LABS: NA 135, K+ 3.3, GLU 85, BUN 7, PARTNERSHIP MANAGER 0.7, ALB 1.8 MEDS: REMERON (D/C) ADDED: OSCAL+D, VIT A, AND CELEXA DIET RX: REGULAR W/ENSURE CLEAR TID (PER PT REQUEST). PO INTAKE IS POOR; 0-50%. EST NUTR NEEDS: [id number] KCALS AND 76-92 GM PROTEIN D-AT NUTRITION RISK W/INDEQUATE ORAL INTAKE R/T POOR APPETITE AEB INTAKE RECORDS. I-1)CONTINUE W/ENSURE CLEAR TID 2)ADD ERIKA BID TO L/D M/E-GOAL: PO INTAKE >/=50% BY DISCHARGE 1)F/U PO INTAKE, SUPPLEMENT, LABS, AND POC IN 3-5 DAYS 2)ASSIST NEEDED
--- NOTE | 2016-05-06 17:06 | NUR ---
Significant Event: A/Ox3. SBP- 150-170s. P-90-100s. Afebrile. Room air with clear/diminished lung sounds and expirtory wheezes at times. L) FA and R)UA IVs saline locked. Patient dangled and stood at bedside x2 today with 2A. Voids per urinal, 550ml of yellow urine out/shift. Moderate stool x1. No Blood noted in stool. Nystatin cream to groin folds continued. Alovesta to blanchble redness on bottom. Q2HR turns. Awaiting placement to [facility].
--- NOTE | 2016-05-06 18:11 | NUR ---
Received message from Jessica at [facility] and they are uncertain they can accept due to accuity and the care level of their other patients. She says to call her back. Spoke with patient and girlfriend Prerna. He does not try to get out of bed and does use the call light. He is weak and does feel at times like his legs give out on him when up with help. Updated them on [place] and [place] [facility]. Told them I will call SB back. Prerna says [place] would be easiest but if need to go somewhere in [place], [facility] would be first choice as one of his daughters works there. Called and spoke with Jessica nd she says to send update and she will review with Tonya ECHEVERRIA again in the am. WIll follow.
--- NOTE | 2016-05-07 04:44 | NUR ---
Significant events: Pt A/Ox3, forgetful at times. VSS. No complaints of pain. BM this shift. Voids per urinal. Significant other at bedside. Slept most of shift.
--- NOTE | 2016-05-07 12:00 | NUR ---
Call from Jessica at [facility] and they are not able to accept patient. They are concerned he needs prison placement and that he seems to not be working well with therapy. Updated patient and S.O. this a.m and they want referral made to [facility]. Called Jayde at [facility] and referral faxed. Will follow.
--- NOTE | 2016-05-07 16:39 | NUR ---
Spoke with Jayde at [facility] and they are unable to accept patient since he does not have a supplemental and not sure if he will qualify for medicaid. Will update patient, S.O. and family. Will continue to look for SNF to accept patient. Will follow.
--- NOTE | 2016-05-07 17:04 | NUR ---
Significant Event: A/O x3, cooperative with cares. VSS, SBPs 130-190s, HRs 80s, on room air. No c/o pain. Initial dose of Norvasc given. Up with assist of 2. [facility] won't accept; referral made to [facility]. Follow up: may go to [facility] without tele
--- NOTE | 2016-05-08 05:29 | NUR ---
Significant events: Pt A/Ox3. VSS. Up 2PA. No complaints of pain. Voids per urinal. Nystatin to groin folds. 1 BM this shift. Slept most of shift.
[2016-05-08 06:21] LABS: BASOPHIL % 0.9 %; EOSINOPHIL # 0.1 K/uL (0.0-0.5); EOSINOPHIL % 1.4 %; HEMATOCRIT 27.1 % (37.0-53.0); HEMOGLOBIN 8.8 g/dL (12.0-17.0); IMMATURE GRANULOCYTE % 0.5 %; LYMPHOCYTE # 1.3 K/uL (0.8-4.0); LYMPHOCYTE % 30.2 %; MCH 31.2 pg (27.0-34.0); MCHC 32.5 gm/dL (32.0-36.5); MCV 96.1 fl (83.0-98.0); MONOCYTE # 0.3 K/uL (0.0-1.0); MONOCYTE % 7.5 %; MPV 9.9 fl (9.4-12.4); NEUTROPHIL # (ANC) 2.5 K/uL (1.4-9.0); NEUTROPHIL % 59.5 %; NRBC % 0 /100WBC (0-0.00); RBC 2.82 M/uL (4.00-6.00); RDW-CV 16.3 % (11.9-14.6); WBC 4.3 K/uL (4.0-11.0)
[2016-05-08 06:22] LABS: PLATELET COUNT 210 K/uL (150-450)
--- NOTE | 2016-05-08 17:13 | NUR ---
Significant Event: A/O x3, cooperative with cares. VSS, SBPs 110-160s, HRs 70-80s, on room air. No c/o pain. Up with assist of 2 with assist of therapy; ambulated in room from window to door. [facility] unable to take patient. Referral made to another local long term. Follow up: may transfer to [facility] without tele
--- NOTE | 2016-05-08 17:28 | NUR ---
Called facilities in [place] to see if will consider him and if will accept with medicare only. Talked to patient and his sister earlier today regarding discharge plans. Told them [facility] is not able to accept him as no supplemental coverage. Told them [facility] has no male beds and [facility] will not accept without a supplemental insurance. Told them [facility] is willing to assess him but will have to talk to their team about the financial status. Sister says they are working on medicaid and cancelling a life insurance policy today. Asked him if they have received anything from Medicaid and if they had told them to do that. She says his daughter is working on the medicaid application and she is who said to cancel the policy. Talked to them about options outside of [place] like [place] and [place]. Sister says she thinks they are too far away, but it is up to the daughters. She says to call Torrie. Spoke with Torrie regarding discharge plans and medicaid application. She says her sister Leann is working on the medicaid application. She says if out of town she would be OK with [facility] but doesn't know if the others will be. She asks about facilities close to her aunt in [place]. Told her [facility] has 2 skilled facilities and [facility] has one. She is going to talk to her aunt and then her dad about choices. She says to talk to her dad in the morning and he will have their choices. She asks when I will hear from [facility] and told her I had hoped to hear back today but have not so will call them in the a.m. She says that would be their first choice. Will follow.
--- NOTE | 2016-05-09 05:05 | NUR ---
Significant Event: Patient alert and oriented x3. Often slow to speak. Affect is flat. SBP 130-173. HR 80s-90s. All other vital signs stable. On RA. Incontinent of urine and bowel this shift. BM x2, loose. No complaints of pain. Nystatin to groin. Turned Q2 when patient allowed. Calm and cooperative with all cares. Follow up: Waiting on placement. Will continue to monitor per plan of care.
--- NOTE | 2016-05-09 09:16 | NUR ---
A - NUTRITION F/U. NO NEW LABS. 2+ EDEMA TO FEET/ANKLES. DIET: REGULAR W/ ENSURE CLEAR AND ERIKA BID. INTAKE VARIES FROM 0-100%. PT W/ O/A TO BUTTOCKS. WAITING TO FIND PLACEMENT. D - INADEQUATE ORAL INTAKE AT TIMES R/T DECREASED APPETITE AEB INTAKE RECORD. I - GOAL: 50% OR BETTER INTAKE. M/E - CONT TO ENCOURAGE MEAL AND SUPPLEMENT INTAKE.
--- NOTE | 2016-05-09 12:09 | NUR ---
05/09/16 [id number]: STUDENT NURSE DAMIAN AVALOS ASSESSED AND DOCUMENTED ON THIS PATIENT. I AGREE WITH HER ASSESSMENT AND DOCUMENTATION. VY GUERRA
--- NOTE | 2016-05-09 12:15 | NUR ---
Spoke with Juani at [facility] and they are unable to accept patient without a supplemental insurer. Spoke with patient and updated him on [place]. Asked him if his daughter called and talked with him about other options. He says she did not. Asked him if his sister called and he says no. Asked him if interested in being closer to his sister. He doesn't know and says further for Prerna to drive. He says Prerna will be here around 1600. Will come back and touchbase with her. Will follow.
--- NOTE | 2016-05-09 16:27 | NUR ---
Significant Event: A/O X 3. DENIES PAIN. REPOSITIONED IN BED. PT/OT SEES PATIENT. AFEBRILE. HR SR IN 90'S. SBP 114-160'S. MOIRA. GROINS HEALING VERY WELL. REDNESS ALMOST GONE. RT. ELBOW WITH SCAB. DRESSING CHANGED. LT. ARM ELBOW PROTOCTOR PLACED. PATIENT VOIDS SMALL AMTS AT A TIME. USING URINAL. Follow up: CONT. TO MONITER.
--- NOTE | 2016-05-09 17:20 | NUR ---
Spoke with patient and girlfriend Prerna. They both say they have not heard from Sherley. Prerna says she is the oldest daughter but rarely has contact with them. She says Corinne lives in [place] and has said if he goes home she can check on him a couple of times a day while Prerna is at work. Told them I don't think he is strong enough at this time to be home. He says therapy told him they will try walking in the [place] tomorrow. Talked with them about other options. They really don't give me any input. Asked for Corinne's number and they gave to me. Will contact Corinne. Will follow.
--- NOTE | 2016-05-10 05:27 | NUR ---
SIGNIFICANT EVENT: Patient transferred from PCU at approx. 1930. Tachycardic, other VSS on RA. Patient alert & oriented. Mildly [place]. Uses urinal in bed, bedpan for BM's, incontinent at times. R) elbow bursa, swollen - dressing vaseline gauze, gauze and kerlix. L) elbow protector on, use aloe vesta PRN. Redness to bilateral groin, upper/inner thighs is a clearing yeast infection - nystatin ointment applied as scheduled. Regular diet. PIV to R) UA is SL, L) FA also SL - flush well, no blood return. Denies pain, nausea. Cooperative with cares. Waiting for skilled placement or opening on TCU.
--- NOTE | 2016-05-10 16:11 | NUR ---
Significant Event:PT. ALERT BUT HAS SLEPT MOST OF THE DAY. VOIDED 150ML TODAY. GROIN YEAST IS MUCH IMPROVED. HX OF STEEL PLATE PLACED IN BACK. HX OF ALCOHOL AND RENAL FAILURE. PASCUA YAQUI HAS DRESSINGS ON LEFT AND RIGHT ELBOWS. IV LFA AND RFA S/L'D. EATING 50% OF DIET. HAS NUMEROUS MACULOLES ON FACE AND NECK. Follow up:
--- NOTE | 2016-05-11 06:36 | NUR ---
Significant Event: Pt alert and oriented. Repositioned q 2 hours. Changed dressing to right elbow. Uses urinal in bed. No c/o pain. Uses call light. Bed alarm on at all times with no attempts to get out of bed. Follow up: Placement
--- NOTE | 2016-05-11 15:33 | NUR ---
Patient is alert and oriented, VSS on room air. 1-2 assist with walker and GB. R) elbow has vaseline gauze, gauze and wrap, L) elbow has an elbow protector on it. He is a Q2 turn, has refused at times, does move himself. Lidocaine patch to the lower back for chronic back pain. Uses urinal at bedside, low output. Regular diet with only about 50% eaten. IVs are saline locked to the L) wrist and R) upper arm.
--- NOTE | 2016-05-12 07:32 | NUR ---
Significant Event: Pt alert and oriented. Has refused some cares, dressing change to right elbow and not keeping heels off bed and taking off left elbow protector. Incont of bowel x 1. Uses bedside urinal. Does repostion frequently by himself. VSS afebrile. Aloe to ventura lower legs. Encourage activity. Follow up:
--- NOTE | 2016-05-12 16:12 | NUR ---
Significant Event:VSS.RA.DENIES ANY PAIN THIS SHIFT. UP TO THE BATHROOM WITH 1 ASSIST+WALKER. REPOSITIONS SELF FREQUENT. HAS BEEN AT THE BEDSIDE. PATIENT WAITING ON PLACEMENT. Follow up:WILL CONTINUE TO MONITOR PER PLAN OF CARE.
--- NOTE | 2016-05-13 02:41 | NUR ---
SIGNIFICANT EVENT: Patient alert & oriented. VSS on RA. Refused R) elbow dressing and L) elbow protector. PIV to R)UE is SL. 1 mod BM, no incontinence this shift. Repositions self in bed. Encourage activity
[2016-05-13 05:39] LABS: BASOPHIL # 0.1 K/uL (0.0-0.2); BASOPHIL % 1.3 %; EOSINOPHIL # 0.1 K/uL (0.0-0.5); EOSINOPHIL % 2.8 %; HEMATOCRIT 29.1 % (37.0-53.0); HEMOGLOBIN 9.4 g/dL (12.0-17.0); IMMATURE GRANULOCYTE % 0.2 %; LYMPHOCYTE # 1.9 K/uL (0.8-4.0); LYMPHOCYTE % 40.9 %; MCH 30.7 pg (27.0-34.0); MCHC 32.3 gm/dL (32.0-36.5); MCV 95.1 fl (83.0-98.0); MONOCYTE # 0.4 K/uL (0.0-1.0); MONOCYTE % 9.4 %; MPV 9.5 fl (9.4-12.4); NEUTROPHIL # (ANC) 2.1 K/uL (1.4-9.0); NEUTROPHIL % 45.4 %; NRBC % 0 /100WBC (0-0.00); RBC 3.06 M/uL (4.00-6.00); RDW-CV 15.7 % (11.9-14.6); WBC 4.7 K/uL (4.0-11.0)
[2016-05-13 05:47] LABS: PLATELET COUNT 350 K/uL (150-450)
[2016-05-13 05:52] LABS: ALBUMIN 2.1 gm/dL (3.5-5.0); ALK PHOS 149 IU/L (33-138); ALT 17 IU/L (12-78); ANION GAP 11.7 (10.0-19.0); AST 26 IU/L (10-40); BLOOD UREA NITROGEN 13 mg/dL (6-24); CALCIUM 8.1 mg/dL (8.5-10.5); CHLORIDE 107 mMol/L (96-110); CO2 24 mMol/L (22-32); CREATININE 0.7 mg/dL (0.6-1.3); ESTIMATED GFR (MDRD EQUATION) > 60; POTASSIUM 3.7 mMol/L (3.7-5.1); SODIUM 139 mMol/L (135-145); TOTAL PROTEIN 6.6 g/dL (6.0-8.4)
[2016-05-13 05:57] LABS: TOTAL BILIRUBIN 0.6 mg/dL (0.0-1.5)
--- NOTE | 2016-05-13 10:00 | NUR ---
1000 Spoke with Chucky in PT, patient is a contact guard to one assist. Visited with patients nurse Jessica about TCU, thought that would be a good idea. 1005 sent email to TCU via Bix. 1045 Nae from TCU called and left a message with some therapy/family member questions. 1220 Left a message for patients daughter Corinne to call me #[phone]. 1250 Nae called and she spoke to previous healthcare science specialist Gayathri. They can accept patient tomorrow, planned for 1100. 1330 updated Kaushik Luke on TCU, let charge nurse Faby know, started a packet, orders on the chart. Completed PASRR and placed in packet. 1345 Introduced self and role to patient. Updated on TCU, reinforced to him that he had to work with therapies in order to have Medicare pay. He asked me to call and notify his daughter Corinne. Called Corinne, she answered this time. She was fine with TCU. Reinforced the fact that her dad had to work with therapies in order for Medicare to pay for the stay.
--- NOTE | 2016-05-13 13:27 | NUR ---
A-NUTRITION F/U WAITING FOR PLACEMENT. OA TO BUTTOCKS. REFUSES REPOSITIONING AT TIMES LABS: NA 139, K+ 3.7, GLU 89, BUN 13, HOUSEHOLD REFRIGERATOR MECHANIC 0.7, ALB 2.1 DIET RX: REGULAR W/ENSURE CLEAR TID, ERIKA BID. PO INTAKE 25-50%. REFUSES BREAKFAST AT TIMES EST NUTR. NEEDS: [id number] KCALS AND 76-92 GM PROTEIN D-AT NUTRITION RISK W/INADEQUATE ORAL INTAKE AT TIMES R/T POOR APPETITE, REFUSING MEAL AEB INTAKE RECORDS. I-CONTINUE W/CURRENT SUPPLEMENTS. M/E-GOAL: PO INTAKE >/=50% BY NEXT F/U 1)F/U PO INTAKE, SKIN, AND POC IN 3-5 DAYS 2)ASSIST NEEDED
--- NOTE | 2016-05-13 18:51 | NUR ---
Significant Event: PT A/O. VSS ON RA, AFEBRILE. IV SALINE LOCKED. AMBULATES WITH SBA, GAITBELT AND WALKER. REFUSED THERAPY THIS AM. DID WALK IN HALLS THIS AFTERNOON. ONLY TOOK IN SMALL AMOUNT OF PO TODAY. DENIES PAIN. PLAN IS TO TCU TOMORROW AT 1100. Follow up: ENCOURAGE AMBULATION, CONTINUE TO MONITOR
--- NOTE | 2016-05-14 02:47 | NUR ---
SIGNIFICANT EVENT: Patient alert & oriented. VSS on RA. PIV to R) UE is SL. Refused R) elbow dressing and L) elbow protector. No ambulation this shift. Cooperative with medications and most cares. Transfer to TCU today at 1100.
[2016-05-14 05:50] LABS: HEMATOCRIT 29.7 % (37.0-53.0)
--- NOTE | 2016-05-14 09:16 | NUR ---
PT ADMIT TO [facility] ON 04/27, WAS HAVING COFFEE GROUND EMESIS, LETHARGIC. HAD EGD ON 04/29- ESOPHAGITIS, ESOPHAGEAL FUNGUS, STOMACH ULCERS. HX OF HTN, DVT LLE, CHRONIC BACK PAIN, ALCOHOLISM, GI BLEED. CURRENTLY HAS NICOTINE PATCH TO R SHOULDER, LIDOCAINE PATCH TO LOWER BACK. NURSES NOTES STATE PT WAS VERY UNKEPT/DIRTY ON ARRIVAL. CAN BE INCONTINENT. GIRLFRIEND IS AT BEDSIDE. PT WILL AMBULATES WITH SBA-MINIMAL ASSIST WITH WALKER. TOLERATES REGULAR DIET. PT/OT WORKING WITH, PT WILL SOMETIMES REFUSE. NEEDS LOTS OF ENCOURAGEMENT TO GET OUT OF BED. PT PULLED IV ACCESS OUT LAST NIGHT, HAS NO IV MEDS. WILL VERIFY WITH MD IF OK TO KEEP IV OUT. PT IS GETTING READY TO GET IN SHOWER. LAST SET OF VITALS 137/83, HR 87, 98%RA, 98.1.
--- NOTE | 2016-05-14 10:35 | NUR ---
Spoke to Kaushik Rodney - plan is still for patient to go to TCU. He is working orders now. 1050 Followed up with nursing, working on discharge paperwork.
== END 2016-05-14 11:40 | DRG 377 ==
LOC: GMSU 15:25 → GPCU 15:25 → GMSU 05-09 19:55
PROVIDERS: Family Medicine; Internal Medicine; Nurse Practitioner Family; Physician Assistant; ADMIT Internal Medicine
PROC: 30233N1 Transfusion of Nonautologous Red Blood Cells into Peripheral Vein, Percutaneous Approach (ICD-10-PCS; principal; 2016-04-28)
PROC: 0DB58ZX Excision of Esophagus, Via Natural or Artificial Opening Endoscopic, Diagnostic (ICD-10-PCS; 2016-04-29)
DX: K31.82 Dieulafoy lesion (hemorrhagic) of stomach and duodenum (principal); R57.1 Hypovolemic shock; J69.0 Pneumonitis due to inhalation of food and vomit; E43 Unspecified severe protein-calorie malnutrition; G93.40 Encephalopathy, unspecified; D62 Acute posthemorrhagic anemia; N17.9 Acute kidney failure, unspecified; D69.6 Thrombocytopenia, unspecified; B37.2 Candidiasis of skin and nail; Z23 Encounter for immunization; E86.0 Dehydration; K22.10 Ulcer of esophagus without bleeding; K25.9 Gastric ulcer, unspecified as acute or chronic, without hemorrhage or perforation; E50.9 Vitamin A deficiency, unspecified; E55.9 Vitamin D deficiency, unspecified; F10.20 Alcohol dependence, uncomplicated; M54.5 Low back pain; G89.29 Other chronic pain; I10 Essential (primary) hypertension; M70.21 Olecranon bursitis, right elbow; F17.220 Nicotine dependence, chewing tobacco, uncomplicated; Z68.25 Body mass index [BMI] 25.0-25.9, adult; Z78.1 Physical restraint status; Z91.81 History of falling; Z86.718 Personal history of other venous thrombosis and embolism
CPT/HCPCS: A9270; C9113; G0008; G0009; G0480; J0171; J1450; J2020; J2185; J2354; J3411; J3475; J3480; J7030; J7040; J7042; J7050; P9016

== ENCOUNTER 2016-05-14 11:56 | Inpatient (IN) | payer MEDICARE ==
[~2016-05-14] VITALS: Ht 172.7 cm; Wt 71.2 kg
--- NOTE | ~2016-05-14 | DS ---
PATIENT'S NAME: CONCEPCION BARRETT [facility] AGE: 56 Y [address] ROOM: [id number] [place], [place] [address] LOCATION: ADMIT DATE: 05/14/2016 Discharge Summary DISCHARGE DATE: FAMILY PHYSICIAN: Physician, Unknown ATTENDING PHYSICIAN: Alberto Duke ANTICIPATED DATE OF DISCHARGE: 05/21/2016. SUMMARY OF HOSPITALIZATION: This is a 56-year-old male, who was admitted to the transitional care unit after a complex inpatient hospitalization. He does have a past medical history of alcoholism, and was admitted with upper GI bleed, aspiration pneumonia, and metabolic encephalopathy. The patient improved in the course of his hospitalization, but it was felt that he would benefit from a TCU stay. The patient did well with physical and occupational therapy at the transitional care unit. We monitored his hemoglobin and that remained stable. He was maintained on all of his medicines. The patient was counseled against alcohol consumption. He will be discharged to home hopefully tomorrow. He [facility] a [facility]up [facility], and I also advised him to establish care with a primary care physician given his medical problems. Time dedicated to this patient's encounter is 25 minutes. MD LEIGHTON MORA/moiz /[id number] d: 05/21/16210 t: 05/27/16 191, DISCHARGE SUMMARY
[~2016-05-14 11:56] MED LIST changes: +ADVIL PM CAPLE1 EACH PO
--- NOTE | 2016-05-14 16:53 | NUR ---
D: Nursing Admission Summary I: Nursing interventions provided to support the patient's individual plan of care R: MOBILITY-- 1 assist. NUTRITION-- Regular diet SKIN/INCISIONS/WOUNDS-- slight reddness to groin area. some eccomotic areas. SELF CARES-- Needs assistance with ADL's. BOWEL/BLADDER-- Continent of bowel and bladder RESPIRATORY-- On room air PAIN-- No complaints at this time PSYCHOSOCIAL-- Good support from family and friends. COGNITION-- Alert and oriented. SENSORY IMPAIRMENTS/DENTAL NEEDS: Wears glasses NEED FOR BED/MOVEMENT ALARM: As per hospital protocol DISMISSAL PLANS: Back to home Other: P: Current plan of care reviewed and updated Shahida Vanegas RN 05/14/16
--- NOTE | 2016-05-15 02:47 | NUR ---
Significant Event: NEURO/PSYCH: A&Ox4. Hx of EtOH abuse and still drinks HEENT: Wears glasses, teeth discolored. RESP: LS clear, RA; smoker--nicotine patch placed. CARDIO: No edema, VSS ACTIVITY: x1 assist; needs assistance w/ADL's GI/: Regular diet, continent of bladder and bowel SKIN: Redness to groin area; eccymotic areas; scattered tattoos PAIN: No c/o pain PLAN: Go to go home. Needs to work more w/ PT/OT.
--- NOTE | 2016-05-15 16:24 | NUR ---
Significant Event: Patient alert and oriented. Up with 1 assist. WOC here today and applied mepilex dressing to right elbow for protection. No complaints of pain. Uses urinal Follow up:
--- NOTE | 2016-05-16 03:02 | NUR ---
Significant Event:Patient alert and oriented. Transfers 1 assist with walker. Lidoderm patch to back removed. Nicotine patch to left shoulder. Mepilex to Right elbow intact. Denies pain. Meds whole. Call light within reach. Follow up:
--- NOTE | 2016-05-16 13:11 | NUR ---
Significant Event:A/0 X 3, DENIES PAIN- LIDOCAINE PATCH ORDERED TO LOWER MID BACK, NICOTINE PATCH TO L)SHOULDER, PILLS WHOLE, POOR APPETITE, PT/OT SERVICES, USES BEDSIDE URINAL, 1 ASSIST GB/WALKER, STATES DID NOT SLEEP WELL LAST NIGHT AND SLEEPY TODAY. MEPILEX OFF L)ELBOW REDNESS NOTED. Follow up:
--- NOTE | 2016-05-17 02:46 | NUR ---
Significant Event:A/O. 1 assist with gaitbelt and walker. Incontinent of bowel x1. 2 large loose stools. void per urinal. Nicoderm patch to left shoulder. Lidoderm patch to back removed. Right elbow reddened. Meds whole. Call light within reach. Follow up:Dismissal projected to be May 23 ()
--- NOTE | 2016-05-17 08:32 | NUR ---
Social Assessment completed on 05/16 Patient lives at home with his girlfriend Prerna in [place], [place]. Daughter Corinne lives in [place] and runs a daycare. Prerna states that Corinne will be able to help out as needed. Daughter Kelsi lives in [place]. Patient also has a sister Ene who lives in [place]. Patient is on TCU for continued OT/PT and strengthening following an acute GI bleed, vitamin A deficiency, acute encephalopathy, alcohol use disorder, and severe protein calorie malnutrition. Physician: Hospitalists Admission date: 05/14/16 Transfer from: Acute Care Advanced directive: Not on file Patient is a full code Finances: Medicare Legal conerns: N/A Spiritual: Confucianism DME in place: FWW, 4WW, toilet riser. with arms. Patient states that he likes to watch television, particularly old Western shows. Prerna states that he previously sat at home and watched television all day. Patient and Prerna state they would like [facility] for therapy. TCU Team Meeting on 05/16 Therapies state patient is walking 65 feet and is CGA with transfers. Patient's goal is to be [place]. Dietary reports patient is on a regular diet with poor intake. SW recommends HHC upon d/c. ELOS is 05/23 d/c to home in [place] with girlfriend Prerna. Patient and girlfriend in agreement with plan.
--- NOTE | 2016-05-17 15:01 | NUR ---
Significant Event:A/0 X 3, DENIES PAIN, 1 ASSIST GB/WALKER, NEEDS BED ALARM WILL TRANSFER BYSELF. R)ELBOW PROTECTOR PLACED ON, USES BEDSIDE URINAL, SOME INCONTINENCE BOWEL DURING THE NIGHT NONE TODAY. PT/OT SERVICES. EATS POORLY. Follow up:
--- NOTE | 2016-05-17 21:45 | NUR ---
2030 PATIENT IS ALERT AND ORIENTED AND DENIES NEEDS. LIDODERM PATCH IS REMOVED. METOPROLOL HELD DUE TO BP OF 97/61, RECHECKED AT 99/63. HR 81. CALL LIGHT AND PERSONAL BELONGINGS WITHIN REACH.
--- NOTE | 2016-05-18 03:29 | NUR ---
Significant Event: PATIENT IS ALERT AND ORIENTED AND PLEASANT. UP WITH STAND BY ASSIST. WEARS BRIEF. CALLS APPROPRIATELY. WEARS LIDODERM PATCH TO BACK DURING DAY. REMOVED AT HS. METOPROLOL HELD FOR LOW BP. Follow up:
--- NOTE | 2016-05-18 15:53 | NUR ---
Significant Event: Pt a/o x 3, cooperative with cares. Denies pain. Up to b/r with standby assist; reminded to call for assist for b/r. V/S stable. New orders: parameters set for norvasc and metoprolol: Hold for SBP < 110. Visitors today. Follow up:
--- NOTE | 2016-05-19 04:08 | NUR ---
Significant Event: A/Ox3. pleasant and cooperative with acres. calls appropritaly. wears brief. partner helps him throughout the day. metoprolol held for low BP. Follow up:
--- NOTE | 2016-05-19 17:34 | NUR ---
A&0. VSS. SBA. RESTING IN BED MOST OF SHIFT. GAVE BP MED THIS AM. ETOH HX.
--- NOTE | 2016-05-20 02:57 | NUR ---
Significant Event: A/Ox3. PLEASANT AND COOPERCARES WITH CARES. CALLS APPROPRIATLY. WEARS BRIEFS. PARTNER HELPS HIM THROUGHOUT THE DAY. DOES NOT VERBALIZE MANY NEEDS AT NIGHT. Follow up:
[2016-05-20 06:06] LABS: BASOPHIL # 0.1 K/uL (0.0-0.2); BASOPHIL % 1.1 %; EOSINOPHIL # 0.2 K/uL (0.0-0.5); EOSINOPHIL % 4.1 %; HEMATOCRIT 31.3 % (37.0-53.0); HEMOGLOBIN 10.1 g/dL (12.0-17.0); LYMPHOCYTE # 2.4 K/uL (0.8-4.0); LYMPHOCYTE % 42.5 %; MCH 30.7 pg (27.0-34.0); MCHC 32.3 gm/dL (32.0-36.5); MCV 95.1 fl (83.0-98.0); MONOCYTE # 0.4 K/uL (0.0-1.0); MONOCYTE % 7.9 %; MPV 9.3 fl (9.4-12.4); NEUTROPHIL # (ANC) 2.5 K/uL (1.4-9.0); NEUTROPHIL % 44.4 %; NRBC % 0 /100WBC (0-0.00); PLATELET COUNT 312 K/uL (150-450); RBC 3.29 M/uL (4.00-6.00); RDW-CV 15.1 % (11.9-14.6); WBC 5.6 K/uL (4.0-11.0)
--- NOTE | 2016-05-20 16:51 | NUR ---
Significant Event: A/0 X 3, MOD I IN ROOM, GOING HOME TOMORROW WITH GIRLFRIEND, ORDERS FOR HOMEHEALTH, COOPERATIVE WITH MEDS, WHOLE, PT/OT SERVICES TODAY, AMBULATES IN ROOM WITH WALKER. Follow up:
--- NOTE | 2016-05-20 17:54 | NUR ---
faxed [facility] referral to [facility] per patient request. Questions re; coverage for [facility] answered as Belia with [facility] states medicare covers 100%. Patient d/c today and in agreement with plan.
--- NOTE | 2016-05-21 01:38 | NUR ---
D: Nursing Weekly Summary From 05/14/16 to 05/21/16 I: Nursing interventions provided to support the patient's individual plan of care R: MOBILITY-- MOD I IN ROOM NUTRITION-- REGULAR DIET SKIN/INCISIONS/WOUNDS-- NONE SELF CARES-- INDEPENDENT BOWEL/BLADDER-- CONTINENT RESPIRATORY-- ROOM AIR PAIN-- CHRONIC PAIN, MANAGED PSYCHOSOCIAL-- COGNITION-- SPECIAL NEEDS-- NONE BLEEDING-- NONE SENSORY IMPAIRMENTS/DENTAL NEEDS: NONE TEACHING NEEDS-- INFECTION CONCERNS: RISK FOR ELOPEMENT: NEED FOR BED/MOVEMENT ALARM: NO DISMISSAL PLANS: HOME WITH SIGNIFICANT OTHER Other: P: Current plan of care reviewed and updated
--- NOTE | 2016-05-21 03:37 | NUR ---
Significant Event: Patient mod I in room. Lidocaine patch removed last night. No complaints of any pain. BP 95/63 (map of 73) so held lopressor. Denied any needs all shift Follow up: home today
[2016-05-21] MEDS ORDERED: CELEXA20 MG PO (06:44)
[2016-05-21] MEDS ORDERED: OSCAL + D500 MG PO (06:44)
[2016-05-21] MEDS ORDERED: MAG-OX-400(241400 MG PO (06:45)
[2016-05-21] MEDS ORDERED: FOLIC ACID1 MG PO (06:45)
[2016-05-21] MEDS ORDERED: LOPRESSOR50 MG PO (06:46)
[2016-05-21] MEDS ORDERED: THERAGRAN-M1 TAB PO (06:47)
[2016-05-21] MEDS ORDERED: NICODERM / HABIT7 MG TRANS (06:48)
[2016-05-21] MEDS ORDERED: LACTINEX (FLORA1 TAB PO (06:49)
[2016-05-21] MEDS ORDERED: PROTONIX40 MG PO (06:49)
[2016-05-21] MEDS ORDERED: B-1100 MG PO (06:50)
[2016-05-21] MEDS ORDERED: VITAMIN A10000 UNI1 PO (06:51)
--- NOTE | 2016-05-21 11:07 | NUR ---
Significant Event: PATIENT DOING WELL TODAY, DISCHARGED BEFORE 1100 TO HOME WITH FAMILY. EDUCATION WENT WELL. Follow up:
--- NOTE | 2016-05-21 11:42 | NUR ---
meche with [facility] visited with delaney this am. Nurse for [facility]HC will be Rashmi and her phone # left at bedside with patient. all in agreement to plan and will d/c this am.
== END 2016-05-21 10:49 | disposition home health service (06) | DRG 391 ==
LOC: GSNF 11:56
PROVIDERS: Nurse Practitioner Family; ADMIT Family Medicine
PROC: F07Z9ZZ Gait Training/Functional Ambulation Treatment (ICD-10-PCS; principal; 2016-05-14)
PROC: F08Z4ZZ Home Management Treatment (ICD-10-PCS; principal; 2016-05-14)
PROC: F07M6ZZ Therapeutic Exercise Treatment of Musculoskeletal System - Whole Body (ICD-10-PCS; principal; 2016-05-14)
DX: K29.70 Gastritis, unspecified, without bleeding (principal); E43 Unspecified severe protein-calorie malnutrition; K76.0 Fatty (change of) liver, not elsewhere classified; I10 Essential (primary) hypertension; R53.81 Other malaise; E83.42 Hypomagnesemia; F10.20 Alcohol dependence, uncomplicated; Z68.23 Body mass index [BMI] 23.0-23.9, adult; E50.9 Vitamin A deficiency, unspecified; E55.9 Vitamin D deficiency, unspecified; E53.9 Vitamin B deficiency, unspecified; F17.200 Nicotine dependence, unspecified, uncomplicated; M54.9 Dorsalgia, unspecified; Z86.718 Personal history of other venous thrombosis and embolism
CPT/HCPCS: A9270

== ENCOUNTER → 2016-05-27 | Day surgery (SDC) | payer MEDICARE ==
[~2016-05-27] VITALS: Ht 170.2 cm; Wt 72.8 kg
[~2016-05-27] MED LIST changes: +B-1100 MG PO; +CELEXA20 MG PO; +LACTINEX (FLORA1 TAB PO; +LOPRESSOR50 MG PO; +MAG-OX-400(241400 MG PO; +NICODERM / HABIT7 MG TRANS; +OSCAL + D500 MG PO; +THERAGRAN-M1 TAB PO; +VITAMIN A10000 UNI1 PO
--- NOTE | 2016-05-27 07:17 | NUR ---
ONE IV ATTEMPT MADE PER VICTOR HUGO LAMRN
== END | disposition disaster alternative care site (69) ==
LOC: GPOC 05-20 10:00 → GEND 06:40
PROC: 0DJ08ZZ Inspection of Upper Intestinal Tract, Via Natural or Artificial Opening Endoscopic (ICD-10-PCS; principal; 2016-05-27)
DX: K22.10 Ulcer of esophagus without bleeding (principal); K29.71 Gastritis, unspecified, with bleeding; K44.9 Diaphragmatic hernia without obstruction or gangrene; I10 Essential (primary) hypertension; D50.0 Iron deficiency anemia secondary to blood loss (chronic); Z79.899 Other long term (current) drug therapy
CPT/HCPCS: J2001; J7030